=== PATIENT | female | born 1955 | race Caucasian/White ===

== ENCOUNTER 2020-06-27 08:59 | Emergency (ER) | payer BC ==
--- NOTE | 2020-06-27 09:46 | EDM.PDOC ---
ED HPI GENERAL MEDICAL PROBLEM - General Chief Complaint: Abdominal Pain Stated Complaint: RIGHT LOWER AREA PAIN VOMITING Time Seen by Provider: 06/27/20 09:36 Source of Information: Reports: Patient History Limitations: Reports: No Limitations - History of Present Illness INITIAL COMMENTS - FREE TEXT/NARRATIVE: pt arrived with rt lower abdomanal paion and she did strart vomiting this am. Location: Reports: Abdomen, Other (pt has some pain in the rt lower abdoman. ) Associated Symptoms: Reports: Malaise, Nausea/Vomiting Right Lower Abdomen Pain Score (Numeric/FACES): 5 - Related Data Allergies Allergy/AdvReac Type Severity Reaction Status Date / Time No Known Allergies Allergy Verified 06/27/20 09:34 Home Meds: Home Meds Cholecalciferol (Vitamin D3) [Vitamin D3] 2,000 unit PO DAILY 06/27/20 [History] Diltiazem [Cardizem CD] 120 mg PO BEDTIME 06/27/20 [History] Warfarin [Coumadin] 1.5 - 2 tab PO ASDIRECTED 06/27/20 [History] ED ROS GENERAL - Review of Systems Review Of Systems: See Below Constitutional: Reports: Chills, Decreased Appetite HEENT: Reports: No Symptoms Respiratory: Reports: No Symptoms Cardiovascular: Reports: No Symptoms Endocrine: Reports: No Symptoms GI/Abdominal: Reports: Abdominal Pain, Constipation, Other (pt has a history of chronic constipation) : Reports: Other (pressuere on the bladder. ) Musculoskeletal: Reports: No Symptoms Skin: Reports: No Symptoms ED EXAM, GI/ABD - Physical Exam Exam: See Below Text/Narrative:: pt arrived with pain on the rt side down by the bladder. She has a pressure sensation Exam Limited By: No Limitations General Appearance: Alert, Mild Distress, Other (Her pain had gotten alot better after arival. ) Ears: Normal TMs Nose: Normal Inspection Throat/Mouth: Normal Inspection Head: Atraumatic Neck: Tender Lateral Respiratory/Chest: No Respiratory Distress Cardiovascular: Irregularly Irregular, Other (Pt is on coumadin therapy. ) GI/Abdominal Exam: Soft, Tender, Other (pt has rt lower abdomanal tenderness. ) (Female) Exam: Deferred Rectal (Female) Exam: Deferred Back Exam: Normal Inspection Extremities: Normal Inspection Neurological: Alert, Oriented, Normal Cognition Psychiatric: Anxious Course - Vital Signs Last Recorded V/S: Last Vital Signs Temp 36.1 C 06/27/20 09:32 Pulse 57 L 06/27/20 11:47 Resp 18 06/27/20 11:06 BP 117/56 L 06/27/20 11:47 Pulse Ox 98 06/27/20 11:47 - Orders/Labs/Meds Labs: Laboratory Tests 06/27/20 06/27/20 06/27/20 Range/Units 09:42 09:50 09:50 WBC 8.1 (4.5-11.0) K/uL RBC 4.43 (3.30-5.50) M/uL Hgb 13.2 (12.0-15.0) g/dL Hct 40.1 (36.0-48.0) % MCV 91 (80-98) fL MCH 30 (27-31) pg MCHC 33 (32-36) % Plt Count 212 (150-400) K/uL Neut % (Auto) 89 H (36-66) % Lymph % (Auto) 7 L (24-44) % [place] % (Auto) 3 (2-6) % Eos % (Auto) 0 L (2-4) % Baso % (Auto) 0 (0-1) % PT (9.5-12.0) sec INR (0.80-1.20) Sodium (140-148) mmol/L Potassium (3.6-5.2) mmol/L Chloride (100-108) mmol/L Carbon Dioxide (21-32) mmol/L Anion Gap (5.0-14.0) mmol/L BUN (7-18) mg/dL Creatinine (0.6-1.0) mg/dL Est Cr Clr Drug Dosing mL/min Estimated GFR (MDRD) (>60) Glucose (74-106) mg/dL Calcium (8.5-10.1) mg/dL Total Bilirubin (0.2-1.0) mg/dL AST (15-37) U/L ALT (12-78) U/L Alkaline Phosphatase (46-116) U/L C-Reactive Protein 0.27 (0.0-0.3) mg/dL Total Protein (6.4-8.2) g/dL Albumin (3.4-5.0) g/dL Globulin (2.3-3.5) g/dL Albumin/Globulin Ratio (1.2-2.2) Urine Color Yellow (YELLOW) Urine Appearance Turbid A (CLEAR) Urine pH 5.5 (5.0-8.0) Ur Specific [place] >= 1.030 (1.008-1.030) Urine Protein 30 H (NEGATIVE) mg/dL Urine Glucose (UA) Negative (NEGATIVE) mg/dL Urine Ketones Negative (NEGATIVE) mg/dL Urine Occult Blood Moderate H (NEGATIVE) Urine Nitrite Negative (NEGATIVE) Urine Bilirubin Negative (NEGATIVE) Urine Urobilinogen 0.2 (0.2-1.0) EU/dL Ur Leukocyte Esterase Negative (NEGATIVE) Urine RBC 30-40 H (0-5) Urine WBC Not seen (0-5) Ur Epithelial Cells Not seen Amorphous Sediment Not seen Urine Bacteria Rare Urine Mucus Not seen Urine Other Urinalysis Comment 06/27/20 06/27/20 Range/Units 09:50 09:50 WBC (4.5-11.0) K/uL RBC (3.30-5.50) M/uL Hgb (12.0-15.0) g/dL Hct (36.0-48.0) % MCV (80-98) fL MCH (27-31) pg MCHC (32-36) % Plt Count (150-400) K/uL Neut % (Auto) (36-66) % Lymph % (Auto) (24-44) % [place] % (Auto) (2-6) % Eos % (Auto) (2-4) % Baso % (Auto) (0-1) % PT 25.8 H (9.5-12.0) sec INR 2.41 H (0.80-1.20) Sodium 141 (140-148) mmol/L Potassium 3.7 (3.6-5.2) mmol/L Chloride 104 (100-108) mmol/L Carbon Dioxide 27 (21-32) mmol/L Anion Gap 10.4 (5.0-14.0) mmol/L BUN 21 H (7-18) mg/dL Creatinine 0.9 (0.6-1.0) mg/dL Est Cr Clr Drug Dosing 52.93 mL/min Estimated GFR (MDRD) > 60 (>60) Glucose 128 H (74-106) mg/dL Calcium 9.3 (8.5-10.1) mg/dL Total Bilirubin 0.4 (0.2-1.0) mg/dL AST 13 L (15-37) U/L ALT 23 (12-78) U/L Alkaline Phosphatase 74 (46-116) U/L C-Reactive Protein (0.0-0.3) mg/dL Total Protein 6.8 (6.4-8.2) g/dL Albumin 3.5 (3.4-5.0) g/dL Globulin 3.3 (2.3-3.5) g/dL Albumin/Globulin Ratio 1.1 L (1.2-2.2) Urine Color (YELLOW) Urine Appearance (CLEAR) Urine pH (5.0-8.0) Ur Specific [place] (1.008-1.030) Urine Protein (NEGATIVE) mg/dL Urine Glucose (UA) (NEGATIVE) mg/dL Urine Ketones (NEGATIVE) mg/dL Urine Occult Blood (NEGATIVE) Urine Nitrite (NEGATIVE) Urine Bilirubin (NEGATIVE) Urine Urobilinogen (0.2-1.0) EU/dL Ur Leukocyte Esterase (NEGATIVE) Urine RBC (0-5) Urine WBC (0-5) Ur Epithelial Cells Amorphous Sediment Urine Bacteria Urine Mucus Urine Other Urinalysis Comment Meds: Medications Discontinued Medications Generic Name Dose Route Start Last Admin Trade Name Leonelq PRN Reason Stop Dose Admin Sodium Chloride 1,000 mls @ 999 mls/hr 06/27/20 10:00 06/27/20 10:09 Normal Saline IV 999 mls/hr ASDIRECTED RAINER Administration Sodium Chloride 1,000 mls @ 999 mls/hr 06/27/20 11:30 06/27/20 11:32 Normal Saline IV 999 mls/hr ASDIRECTED RAINER Administration Ketorolac Tromethamine 10 mg 06/27/20 12:03 06/27/20 12:13 Toradol IVPUSH 06/27/20 12:04 10 mg ONETIME ONE Administration Ondansetron HCl 4 mg 06/27/20 10:00 06/27/20 10:11 Zofran IVPUSH 06/27/20 10:01 4 mg ONETIME ONE Administration Tamsulosin HCl 0.4 mg 06/27/20 12:02 06/27/20 12:16 Flomax PO 06/27/20 12:03 0.4 mg ONETIME ONE Administration - Re-Assessments/Exams Free Text/Narrative Re-Assessment/Exam: 06/27/20 12:00 urine showed 40-50 rbc . Pt had a cat scan which showed a 3 mm stone which has either passed into the bladder or is ready to pass. Pt is on her second liter of fluid. Her pain remains under good control hich makes me think the stone may be in the bladder. Departure - Departure Time of Disposition: 12:03 Disposition: Home, Self-Care 01 Condition: Fair Clinical Impression: Ureteral calculus, right - Discharge Information Instructions: Kidney Stones, [id number] Referrals: PCP,None [Primary Care Provider] - Forms: ED Department Discharge Care Plan Goals: push fluids, flomax .4 x 2 days, norco 5/325 q6h prn for pain #6 If pain is persistent see regular Sepsis Event Note (ED) - Evaluation Sepsis Screening Result: No Definite Risk
[2020-06-27] MEDS ORDERED: Sodium Chloride 0.9% 1,000 ML IV SCH ×2 (10:00→11:30)
[2020-06-27] MEDS ORDERED: Ondansetron 4 MG/2 ML SDV IVPUSH ONE (10:00)
--- NOTE | 2020-06-27 11:46 | CRLCT ---
INDICATION: Right flank pain/abdominal pain. TECHNIQUE: CT abdomen and pelvis without contrast. COMPARISON: None FINDINGS: Lower chest: There is a small hiatal hernia and bibasilar pulmonary scarring/atelectasis. Liver: Unremarkable. Spleen: Unremarkable. Pancreas: Unremarkable. Gallbladder and bile ducts: Unremarkable. Kidneys: There is a 3 millimeter calculus identified in the distal right ureter/ layering dependently within the right dorsal urinary bladder best seen on axial image 170 of series 2. This calculus is causing mild right-sided hydroureteronephrosis and subtle stranding of right perinephric fat. No other urolithiasis is seen. Adrenal glands: Unremarkable. GI tract: Unremarkable. Appendix is normal. Vascular structures: Unremarkable. Lymph nodes: Unremarkable. Miscellaneous: Unremarkable. No free air or significant free fluid. Pelvic Organs: The uterus is absent. A 3 millimeter phlebolith is identified immediately adjacent to the distal right ureter. Bones: Unremarkable for age. IMPRESSION: 1. 3 millimeter calculus is identified in the distal right ureter or less likely has recently passed and is layering dependently in the right dorsal urinary bladder. There is associated mild right-sided hydroureteronephrosis. 2. Other findings are as discussed above. Please note that all CT scans at this facility use dose modulation, iterative reconstruction, and/or weight-based dosing when appropriate to reduce radiation dose to as low as reasonably achievable. Dictated by Rupert Faulkner MD @ Jun 27 2020 11:34AM Signed by Dr. Rupert Faulkner @ Jun 27 2020 11:45AM
[2020-06-27] MEDS ORDERED: Tamsulosin 0.4 MG Cap.ER PO ONE (12:02)
[2020-06-27] MEDS ORDERED: Ketorolac 30 MG/ML SDV IVPUSH ONE (12:03)
== END 2020-06-27 12:32 | disposition home or self-care (01) ==
LOC: JP.ED 08:59
DX: N13.2 Hydronephrosis with renal and ureteral calculous obstruction (principal); Z79.899 Other long term (current) drug therapy
CPT/HCPCS: 36415; 74176; 80053; 81001; 85025; 85610; 86140; 96374; 96375; 99284; A9270; J1885; J2405; J7030